=== PATIENT | male | born 2000 | race Caucasian/White ===

== ENCOUNTER 2020-11-14 14:01 | Inpatient (IN) | payer OTHER ==
[~2020-11-14] VITALS: Ht 177.8 cm; Wt 68.0 kg
[2020-11-14 18:54] LABS: HEMOGLOBIN 14.6 gm/dl (14.0-17.5); RED BLOOD COUNT 4.82 M/UL (4.20-5.50); WHITE BLOOD COUNT 7.5 K/UL (4.5-11.0)
[2020-11-14 20:49] LABS: BUN/CREATININE RATIO 21 (0-10)
--- NOTE | 2020-11-15 18:58 | NUR ---
SINGLE LUMEN PICC LINE INSERTED IN THE RIGHT BRACHIAL VEIN, CUT TO 33 CM. PICC TIP CONFIRMED TO BE IN SVC BY [employer]NOLOG[employer]. PICC INSERTION SITE CHOSEN ABOVE KNOWN PIV INFILTRATION WITH REDNESS. RIGHT ARM CHOSEN FOR PICC SECONDARY TO LEFT ARM SURGERY SCHEDULED FOR 11/16. NO COMPLICATIONS NOTED.
[2020-11-15] MEDS ORDERED: SUBUTEX 8 MG TAB8 MG PO (21:35)
[2020-11-16 05:08] LABS: WHITE BLOOD COUNT 6.7 K/UL (4.5-11.0)
[2020-11-16 05:12] LABS: HEMOGLOBIN 12.3 gm/dl (14.0-17.5); RED BLOOD COUNT 3.98 M/UL (4.20-5.50)
[2020-11-16 05:26] LABS: BUN/CREATININE RATIO 25 (0-10)
[2020-11-16 09:12] LABS: HBSAG SCREEN Negative (Negative); HEP A AB, IGM Negative (Negative); HEP B CORE AB, IGM Negative (Negative); HEP C VIRUS AB >11.0 (0.0-0.9); RHEUMATOID ARTHRITIS FACTOR 13.3 IU/mL (0.0-13.9)
[2020-11-17 05:48] LABS: HEMOGLOBIN 12.9 gm/dl (14.0-17.5); RED BLOOD COUNT 4.16 M/UL (4.20-5.50)
[2020-11-17 05:56] LABS: WHITE BLOOD COUNT 12.1 K/UL (4.5-11.0)
[2020-11-17 06:16] LABS: BUN/CREATININE RATIO 23 (0-10)
[2020-11-18 05:37] LABS: HEMOGLOBIN 12.3 gm/dl (14.0-17.5); RED BLOOD COUNT 3.96 M/UL (4.20-5.50)
[2020-11-18 05:43] LABS: BUN/CREATININE RATIO 19 (0-10)
[2020-11-18 05:50] LABS: WHITE BLOOD COUNT 7.6 K/UL (4.5-11.0)
[2020-11-19 04:03] LABS: HEMOGLOBIN 12.3 gm/dl (14.0-17.5); RED BLOOD COUNT 3.93 M/UL (4.20-5.50); WHITE BLOOD COUNT 6.5 K/UL (4.5-11.0)
[2020-11-19 04:26] LABS: BUN/CREATININE RATIO 15 (0-10)
[2020-11-19] MEDS ORDERED: ROCEPHIN 2 GM AD2 GM IV (17:12)
[2020-11-19] MEDS ORDERED: IBUPROFEN600 MG PO (17:13)
[2020-11-20 16:14] LABS: CHLAMYDIA TRACHOMATIS, NAA Negative (Negative); NEISSERIA GONORRHOEAE, NAA Negative (Negative)
== END 2020-11-19 18:10 | disposition home or self-care (01) | DRG 507 ==
LOC: ER1 14:01 → CDU 21:10 → M/S 21:10
PROVIDERS: Internal Medicine; Internal Medicine Infectious Disease; Orthopaedic Surgery; Physician Assistant; ADMIT Internal Medicine
PROC: 0R9M0ZZ Drainage of Left Elbow Joint, Open Approach (ICD-10-PCS; principal; 2020-11-16 14:59)
DX: M00.2 Other streptococcal arthritis and polyarthritis (principal); F11.20 Opioid dependence, uncomplicated; F17.210 Nicotine dependence, cigarettes, uncomplicated; Z20.822 Contact with and (suspected) exposure to COVID-19; B95.5 Unspecified streptococcus as the cause of diseases classified elsewhere; E03.9 Hypothyroidism, unspecified; F19.11 Other psychoactive substance abuse, in remission
CPT/HCPCS: 36415; 73220; 80048; 80053; 80074; 80202; 84439; 84443; 85025; 85652; 86038; 86140; 86431; 87040; 87070; 87081; 87205; 96365; 96366; 96367; 96368; 99284; A9577; J0696; J1100; J1170; J1885; J2001; J2250; J2405; J2704; J3010; J3370; J7070; J7120; U0002